=== PATIENT | female | born 1995 | race Two or more races ===

== ENCOUNTER 2022-05-11 11:00 | Inpatient (IN) | payer MEDICAID, OTHER ==
[~2022-05-11] VITALS: Ht 170.2 cm; Wt 68.5 kg
[2022-05-11] MEDS ORDERED: PHISODERM TOP SOLN 240ML BTL TOP PRN (12:00)
[2022-05-11] MEDS ORDERED: PROMETHAZINE HCL 25 MG/ML 1ML IV PRN (12:00)
[2022-05-11] MEDS ORDERED: BUTORPHANOL TARTRATE 2 MG/1 ML VIAL IV PRN ×2 (12:00)
[2022-05-11] MEDS ORDERED: LIDOCAINE 2%HCL (LOCAL ANESTH.) INJ 20ML MDV IJ PRN (12:00)
[2022-05-11] MEDS ORDERED: PENICILLIN G POT 5MIL/D5 50ML 50 ML IV ONE (12:00)
[2022-05-11] MEDS ORDERED: LACTATED RINGER'S 1,000 ML IV SCH (12:00)
[2022-05-11] MEDS ORDERED: DERMOPLAST 60ML BOTTLE TOP PRN (12:00)
[2022-05-11] MEDS ORDERED: WITCH HAZEL-GLYCERIN PAD TOP PRN (12:00)
[2022-05-11 12:28] LABS: Basophils # (auto) 0 10 ^3/uL (0-0.2); Basophils % (auto) 0.3 % (0.0-2.0); Eosinophils # (auto) 0.1 10 ^3/uL (0-0.8); Eosinophils % (auto) 0.8 % (0.0-7.0); Hematocrit 36.6 % (36.0-46.0); Hemoglobin 12.1 g/dL (12.2-16.2); Lymphocytes # (auto) 1.4 10 ^3/uL (0.4-5.4); Lymphocytes % (auto) 12.8 % (10.0-50.0); Monocytes # (auto) 0.6 10 ^3/uL (0-1.3); Monocytes % (auto) 5.7 % (0.0-12.0); Neutrophils # (auto) 8.7 10 ^3/uL (1.6-8.6); Neutrophils % (auto) 80.4 % (37.0-80.0); Nucleated Red Blood Cells % 0.1 %; Red Cell Distribution Width 14.2 % (11.8-14.3); White Blood Cell 10.9 10^3/uL (4.4-10.8)
[2022-05-11] MEDS ORDERED: METHYLERGONOVINE MALEATE 0.2 MG/ML AMP IM ONE (12:30)
[2022-05-11] MEDS ORDERED: ONDANSETRON ODT 4 MG TAB PO PRN (12:30)
[2022-05-11] MEDS ORDERED: miSOPROStol 100 mcg TAB PR PRN (12:30)
[2022-05-11] MEDS ORDERED: ACETAMINOPHEN 325 MG TAB PO PRN ×2 (12:30→15:45)
[2022-05-11] MEDS ORDERED: LACT. RINGERS/OXYTOCIN 20UNITS 500 ML IV ONE ×2 (12:30→13:00)
[2022-05-11] MEDS ORDERED: CARBOPROST TROMETHAMINE 250 MCG/1ML VIAL IM ONE (12:30)
[2022-05-11] MEDS ORDERED: miSOPROStol 100 mcg TAB SL PRN (12:30)
[2022-05-11 12:35] LABS: Urine Bacteria FEW /hpf (None Seen); Urine Blood Negative /uL (Negative); Urine Specific Gravity 1.023 (1.001-1.035); Urine WBC 6 /hpf (0 - 5)
[2022-05-11 12:46] LABS: INR 0.92 (0.9-1.15); Partial Thromboplastin Time 26.5 sec (24.6-33.4)
[2022-05-11 12:54] LABS: Alcohol, Urine < 3.0 mg/dL (0-10); Amphetamine Screen, Urine NEGATIVE (NEGATIVE); Barbiturate Scree,Urine NEGATIVE (NEGATIVE); Benzodiazephine Screen, Urine NEGATIVE (NEGATIVE); Cannabinoid Screen, Urine NEGATIVE (NEGATIVE); Cocaine Screen, Urine NEGATIVE (NEGATIVE); Opiate Scree,Urine NEGATIVE (NEGATIVE); Phencyclidine Screen, Urine NEGATIVE (NEGATIVE)
[2022-05-11 12:55] LABS: Alanine Aminotransferase 16 U/L (13-56); Albumin 2.8 g/dL (3.4-5.0); Anion Gap 9 (5-15); Aspartate Aminotransferase 13 U/L (15-37); BUN/Creatinine Ratio 12.9; Blood Urea Nitrogen 8 mg/dL (7-18); Calcium 8.5 mg/dL (8.5-10.1); Carbon Dioxide 20 mmol/L (21-32); Chloride 107 mmol/L (98-107); GFR African American 146 mL/min; GFR Non-African American 121 mL/min; Glucose 85 mg/dL (74-106); Potassium 3.9 mmol/L (3.5-5.1); Sodium 136 mmol/L (136-145)
[2022-05-11 12:58] LABS: Alkaline Phosphatase 151 U/L (45-117); Bilirubin, Total 0.3 mg/dL (0.2-1.0); Total Protein 7.1 g/dL (6.4-8.2)
[2022-05-11] MEDS ORDERED: LACT. RINGERS/OXYTOCIN 20UNITS 1,000 ML IV SCH (13:00)
[2022-05-11] MEDS ORDERED: PENICILLIN G POTASSIUM 2,500,000 UNITS in D5W 5% 50 ML IV SCH (16:00)
[2022-05-11 16:50] VITALS: BP 125/59
[2022-05-11 18:50] VITALS: BP 109/72
[2022-05-11] MEDS ORDERED: DOCUSATE SOD 100 MG CAP PO SCH (22:00)
[2022-05-11] MEDS: IBUPROFEN 600 MG TAB PO PRN (22:00)
[2022-05-11] MEDS: DOCUSATE SOD 100 MG CAP PO SCH (22:01)
[2022-05-11 23:00] VITALS: BP 98/63
[2022-05-12 02:35] VITALS: BP 108/69
[2022-05-12 05:06] LABS: RPR Non Reactive (Non Reactive)
[2022-05-12] MEDS: IBUPROFEN 600 MG TAB PO PRN ×2 (05:17→18:47)
[2022-05-12 06:50] VITALS: BP 110/67
[2022-05-12 11:30] VITALS: BP 117/75
[2022-05-12 15:20] VITALS: BP 122/66
[2022-05-12 18:47] VITALS: BP 122/60
[2022-05-12] MEDS: DOCUSATE SOD 100 MG CAP PO SCH (21:57)
[2022-05-12 23:09] VITALS: BP 115/76
[2022-05-13 03:00] VITALS: BP 108/67
[2022-05-13 06:30] VITALS: BP 98/66
[2022-05-13] MEDS ORDERED: PREN-96 PO (09:14)
[2022-05-13 09:53] VITALS: BP 130/77
[2022-05-15 03:06] LABS: Rubella Antibodies, IgG 2.45 index (Immune >0.99)
== END 2022-05-13 10:38 | disposition home or self-care (01) | DRG 560 ==
LOC: LDRP 11:00 → UNDOADMOB 11:00 → INTOOBSV 11:29 → OBSVTOIN 11:29 → LDRP 19:41
PROVIDERS: ADMIT Obstetrics & Gynecology; ATTEND Obstetrics & Gynecology
PROC: 10E0XZZ Delivery of Products of Conception, External Approach (ICD-10-PCS; principal; 2022-05-11)
PROC: 0HQ9XZZ Repair Perineum Skin, External Approach (ICD-10-PCS; 2022-05-11)
DX: O69.81X0 Labor and delivery complicated by cord around neck, without compression, not applicable or unspecified (principal); Z37.0 Single live birth; O70.9 Perineal laceration during delivery, unspecified; Z3A.39 39 weeks gestation of pregnancy; Z20.822 Contact with and (suspected) exposure to COVID-19
CPT/HCPCS: 36415; 59409; 76805; 80053; 80307; 81001; 85025; 85610; 85730; 86592; 86703; 86762; 86850; 86900; 86901; 87340; 87426; 94760; 96360; 96361; 96365; 96366; 96375; G0378; J2540; J2590; J7060